=== PATIENT | female | born 1935 | race Caucasian/White ===

== ENCOUNTER 2017-03-30 15:39 | Emergency (ER) | payer OTHER ==
[~2017-03-30] VITALS: Ht 152.4 cm; Wt 108.8 kg
[2017-03-30 16:58] LABS: HEMATOCRIT 43.2 % (36.0-46.0); MCH 32.1 PG (29.0-34.0); MCV 94.3 FL (83-99); MEAN PLAT.VOLUME 10.1 uM^3 (9.5-12.4); PLATELET COUNT 228 K/uL (156-360); RBC DIS.WIDTH-SD 45.2 % (39-53); RED BLOOD COUNT 4.58 M/uL (3.80-5.20); WHITE BLOOD COUNT 6.6 K/uL (4.1-10.2)
[2017-03-30 17:08] LABS: CHLORIDE 105 mEq/L (99-109); SODIUM 140 mEq/L (136-147)
[2017-03-30 17:10] LABS: GLUCOSE 107 mg/dL (70-99)
[2017-03-30 17:11] LABS: ANION GAP 12 MEQ/L (2-14)
[2017-03-30 17:13] LABS: GFR ESTIMATE (CALCULATED) > 59 mL/min/
[2017-03-30 17:14] LABS: UREA NITROGEN (BUN) 13 mg/dL (9-23)
[2017-03-30 17:21] LABS: TROP-I INTERPRETATION NEGATIVE; TROPONIN-I < 0.01 ng/mL (0.0-0.30)
[2017-03-30] MEDS ORDERED: KEFLEX500 MG PO (19:31)
[2017-03-30 20:48] VITALS: BP 144/64
== END 2017-03-30 20:49 | disposition home or self-care (01) ==
LOC: EME 15:39
PROVIDERS: Nurse Practitioner Family
DX: L03.115 Cellulitis of right lower limb (principal); R60.0 Localized edema; Z88.8 Allergy status to other drugs, medicaments and biological substances; Z87.891 Personal history of nicotine dependence
CPT/HCPCS: 71020; 80048; 83880; 84484; 85027; 93005; 99281; 99285; J0690; J7050